=== PATIENT | male | born 1980 | race Two or more races ===

== ENCOUNTER 2022-04-12 20:37 | Emergency (ER) | payer OTHER ==
[2022-04-12 20:57] VITALS: TEMP 99.2; BMI 38.3
[2022-04-12] MEDS ORDERED: VALSARTAN 40 MG TABLET PO ONE (21:20)
[2022-04-12] MEDS ORDERED: LOSARTAN POTASSIUM 25 MG TABLET PO ONE (21:30)
[2022-04-12] MEDS ORDERED: VALSARTAN 80 MG TABLET ONE (21:31)
[2022-04-12] MEDS ORDERED: LOSARTAN POTASSIUM 50 MG TABLET ONE (21:37)
[2022-04-12 21:44] VITALS: BP 167/90; PULSE 86
== END 2022-04-12 21:44 | disposition home or self-care (01) ==
LOC: JER 20:37
DX: I10 Essential (primary) hypertension (principal)
CPT/HCPCS: 99283-25

== ENCOUNTER 2022-06-30 21:56 | Emergency (ER) | payer OTHER ==
[2022-06-30 22:03] VITALS: BP 144/96; PULSE 83; RESP 20; TEMP 98.3; BMI 37.9
[2022-06-30] MEDS ORDERED: ACETAMINOPHEN 500 MG TABLET (FP) PO ONE (23:08)
[2022-06-30] MEDS ORDERED: ACETAMINOPHEN 500 MG TABLET (FP) ONE (23:29)
== END 2022-07-01 01:08 | disposition home or self-care (01) ==
LOC: JER 21:56
DX: M25.561 Pain in right knee (principal)
CPT/HCPCS: 99283-25